=== PATIENT | female | born 1995 | race Caucasian/White ===

== ENCOUNTER 2023-08-25 03:28 | Inpatient (IN) | payer BC ==
[2023-08-25] MEDS ORDERED: Lidocaine 1% 50 ML MDV INJECT PRN (18:35)
[2023-08-25] MEDS ORDERED: Calcium Carbonate 500 MG Tab.Chew PO PRN (18:35)
[2023-08-25] MEDS ORDERED: Misoprostol 25 MCG (1/4 of 100 MCG) Tab VAG PRN (18:35)
[2023-08-25] MEDS ORDERED: Oxytocin/Lactated Ringers 30 UNIT/500 ML BAG IV SCH ×2 (18:45)
[2023-08-25 19:19] LABS: BASOPHILS PERCENT AUTO 0.3 % (0.0-1.0); EOSINOPHILS ABSOLUTE AUTO 0.1 K/mm3 (0.0-0.4); EOSINOPHILS PERCENT AUTO 0.9 % (0.0-6.0); HEMATOCRIT 37.4 % (37.0-47.0); HEMOGLOBIN 12.5 gm/dl (12.0-16.0); IMMATURE GRAN ABSOLUTE AUTO 0.14 K/mm3 (0.00-0.05); IMMATURE GRAN PERCENT AUTO 1.2 % (0.0-0.4); LYMPHOCYTES ABSOLUTE AUTO 2.1 K/mm3 (1.0-4.8); LYMPHOCYTES PERCENT AUTO 18.3 % (24.0-44.0); MEAN CORPUSCULAR HEMOGLOBIN 33.1 pg (28.0-32.0); MEAN CORPUSCULAR HGB CONC 33.4 g/dl (32.0-36.0); MEAN CORPUSCULAR VOLUME 98.9 fl (83.0-99.0); MEAN PLATELET VOLUME 11.2 fl (9.4-12.3); MONOCYTES ABSOLUTE AUTO 0.7 K/mm3 (0.0-0.8); MONOCYTES PERCENT AUTO 5.8 % (0.0-8.0); NEUTROPHILS ABSOLUTE AUTO 8.6 K/mm3 (1.8-7.7); NEUTROPHILS PERCENT AUTO 73.5 % (41.0-71.0); PLATELET COUNT,PLT 151 K/mm3 (150-400); RED BLOOD CELL COUNT 3.78 M/mm3 (4.10-5.30); WHITE BLOOD CELL COUNT,WBC 11.68 K/mm3 (3.9-11.3)
[2023-08-25] MEDS: Misoprostol 25 MCG (1/4 of 100 MCG) Tab VAG ONE (19:49)
[2023-08-25] MEDS ORDERED: diphenhydrAMINE 50 MG/ML SDV IVPUSH PRN (20:15)
[2023-08-25] MEDS: Ondansetron 4 MG/2 ML SDV IVPUSH PRN (23:47)
[2023-08-26] MEDS: Lactated Ringers 1,000 ML IV SCH (01:01)
[2023-08-26] MEDS: fentaNYL 100 MCG/2 ML SDV EPIDUR PRN (01:16)
[2023-08-26] MEDS: Bupivacaine/fentaNYL/NS 100 ML Bag EPIDUR PRN (01:16)
[2023-08-26] MEDS: Azithromycin 500 MG in Sodium Chloride 0.9% 250 ML IV ONE (02:20)
[2023-08-26] MEDS: ePHEDrine 50 MG/ML SDV IVPUSH PRN (02:37)
[2023-08-26] MEDS: Metoclopramide 10 MG/2 ML SDV IVPUSH ONE (02:40)
[2023-08-26] MEDS: Citric Acid/Sodium Citrate Solution 30 ML Cup PO ONE (02:40)
[2023-08-26] MEDS ORDERED: Sodium Chloride 0.9% 10 ML Syringe FLUSH PRN (02:44)
[2023-08-26] MEDS ORDERED: Lactated Ringers 1,000 ML IV SCH (02:45)
[2023-08-26] MEDS ORDERED: Lidocaine 2% 5 ML SDV ONE (03:06)
[2023-08-26] MEDS ORDERED: ceFAZolin 2 GM Vial ONE (03:18)
[2023-08-26] MEDS: Bupivacaine 0.5% 30 ML SDV ONE (03:21)
[2023-08-26] MEDS ORDERED: Ketorolac 30 MG/ML SDV ONE (03:47)
[2023-08-26] MEDS ORDERED: Bupivacaine 0.25% 10 ML SDV ONE (04:00)
[2023-08-26] MEDS ORDERED: Ondansetron 4 MG/2 ML SDV IV PRN (06:00)
[2023-08-26] MEDS ORDERED: fentaNYL 100 MCG/2 ML SDV IVPUSH PRN (06:00)
[2023-08-26] MEDS ORDERED: ePHEDrine 50 MG/ML SDV IVPUSH PRN (06:00)
[2023-08-26] MEDS ORDERED: diphenhydrAMINE 50 MG/ML SDV IVPUSH PRN (06:00)
[2023-08-26] MEDS ORDERED: Naloxone 0.4 MG/ML SDV IVPUSH PRN (06:00)
[2023-08-26] MEDS: Dextrose 5%-Lactated Ringers 1,000 ML IV SCH (06:19)
[2023-08-26] MEDS: Acetaminophen 325 MG Tab PO SCH (07:31)
[2023-08-26] MEDS ORDERED: Sodium Chloride 0.9% 10 ML Syringe FLUSH SCH (09:00)
[2023-08-26] MEDS: Ketorolac 30 MG/ML SDV IVPUSH SCH (10:06)
[2023-08-26] MEDS: Simethicone 80 MG Tab.Chew PO PRN (20:16)
[2023-08-27] MEDS: Ibuprofen 800 MG Tab PO SCH (04:34)
[2023-08-27 05:58] LABS: BASOPHILS PERCENT AUTO 0.3 % (0.0-1.0); EOSINOPHILS ABSOLUTE AUTO 0.1 K/mm3 (0.0-0.4); EOSINOPHILS PERCENT AUTO 0.9 % (0.0-6.0); HEMATOCRIT 23.1 % (37.0-47.0); IMMATURE GRAN ABSOLUTE AUTO 0.08 K/mm3 (0.00-0.05); IMMATURE GRAN PERCENT AUTO 0.8 % (0.0-0.4); LYMPHOCYTES ABSOLUTE AUTO 1.8 K/mm3 (1.0-4.8); LYMPHOCYTES PERCENT AUTO 18.1 % (24.0-44.0); MEAN CORPUSCULAR HEMOGLOBIN 33.3 pg (28.0-32.0); MEAN CORPUSCULAR HGB CONC 32.9 g/dl (32.0-36.0); MEAN CORPUSCULAR VOLUME 101.3 fl (83.0-99.0); MONOCYTES ABSOLUTE AUTO 0.7 K/mm3 (0.0-0.8); MONOCYTES PERCENT AUTO 7.2 % (0.0-8.0); NEUTROPHILS ABSOLUTE AUTO 7.3 K/mm3 (1.8-7.7); NEUTROPHILS PERCENT AUTO 72.7 % (41.0-71.0); PLATELET COUNT,PLT 120 K/mm3 (150-400); RED BLOOD CELL COUNT 2.28 M/mm3 (4.10-5.30); WHITE BLOOD CELL COUNT,WBC 10.02 K/mm3 (3.9-11.3)
[2023-08-27 06:00] LABS: HEMOGLOBIN 7.6 gm/dl (12.0-16.0)
== END 2023-08-28 12:57 | disposition home or self-care (01) | DRG 540 ==
LOC: JD.OB 03:28 → OBSVTOIN 08-26 03:28 → JD.OB 08-26 03:29
PROVIDERS: ADMIT Obstetrics & Gynecology; ATTEND Obstetrics & Gynecology
PROC: 10D00Z1 Extraction of Products of Conception, Low, Open Approach (ICD-10-PCS; principal; 2023-08-26 03:00)
DX: O24.12 Pre-existing type 2 diabetes mellitus, in childbirth (principal); Z3A.39 39 weeks gestation of pregnancy; Z37.0 Single live birth; O32.1XX0 Maternal care for breech presentation, not applicable or unspecified; Z88.5 Allergy status to narcotic agent; Z88.2 Allergy status to sulfonamides; Z79.84 Long term (current) use of oral hypoglycemic drugs; Z79.82 Long term (current) use of aspirin; Z91.018 Allergy to other foods
CPT/HCPCS: 01968; 36415; 51702; 59025; 82947; 85025; 86592; 86850; 86900; 86901; 99140; A9270-GY; J0456; J0665; J0690; J1885; J2405; J2765; J3010; J3490; J7050; J7120; J7121

== ENCOUNTER 2024-12-22 11:42 | Emergency (ER) | payer BC ==
[2024-12-22 12:09] LABS: BASOPHILS ABSOLUTE AUTO 0.0 K/mm3 (0.0-0.2); BASOPHILS PERCENT AUTO 0.5 % (0.0-1.0); EOSINOPHILS ABSOLUTE AUTO 0.2 K/mm3 (0.0-0.4); EOSINOPHILS PERCENT AUTO 2.7 % (0.0-6.0); IMMATURE GRAN ABSOLUTE AUTO 0.02 K/mm3 (0.00-0.05); IMMATURE GRAN PERCENT AUTO 0.3 % (0.0-0.4); LYMPHOCYTES ABSOLUTE AUTO 1.5 K/mm3 (1.0-4.8); LYMPHOCYTES PERCENT AUTO 22.7 % (24.0-44.0); MEAN PLATELET VOLUME 10.1 fl (9.4-12.3); MONOCYTES ABSOLUTE AUTO 0.5 K/mm3 (0.0-0.8); MONOCYTES PERCENT AUTO 7.1 % (0.0-8.0); NEUTROPHILS ABSOLUTE AUTO 4.4 K/mm3 (1.8-7.7); NEUTROPHILS PERCENT AUTO 66.7 % (41.0-71.0); NRBC ABSOLUTE 0.00 (0.00-0.02); NRBC PERCENT 0.0 % (0.0-0.2); PLATELET COUNT,PLT 193 K/mm3 (150-400); RED BLOOD CELL COUNT 4.37 M/mm3 (4.10-5.30); WHITE BLOOD CELL COUNT,WBC 6.60 K/mm3 (3.9-11.3)
[2024-12-22 12:33] LABS: A/G RATIO 0.9 (1-2); ALANINE AMINOTRANSFERASE,ALT 11.0 U/L (14-59); ASPARTATE AMNIOTRANSFERASE,AST 15.0 U/L (15-37); BILIRUBIN TOTAL 0.4 mg/dL (0.2-1.0); BLOOD UREA NITROGEN,BUN 9.0 mg/dL (7-18); CARBON DIOXIDE,CO2 27.0 mEq/L (21-32); CHLORIDE,CL 104.0 mEq/L (98-107); CREATININE 0.6 mg/dL (0.55-1.02); EST CRCL DRUG DOSING (CG) 102.52 mL/min; ESTIMATED GFR 123.0 mL/min (>60); GLUCOSE RANDOM 87.0 mg/dL (70-99); POTASSIUM,K 3.7 mEq/L (3.5-5.1); PROTEIN TOTAL,TP 6.9 g/dl (6.4-8.2); SODIUM,NA 139.0 mEq/L (136-145)
== END 2024-12-22 14:34 | disposition home or self-care (01) ==
LOC: JD.ED 11:42
DX: O41.8X10 Other specified disorders of amniotic fluid and membranes, first trimester, not applicable or unspecified (principal); J45.909 Unspecified asthma, uncomplicated; E11.9 Type 2 diabetes mellitus without complications; Z90.49 Acquired absence of other specified parts of digestive tract; Z91.018 Allergy to other foods; Z88.8 Allergy status to other drugs, medicaments and biological substances; Z88.5 Allergy status to narcotic agent; Z79.82 Long term (current) use of aspirin; Z79.899 Other long term (current) drug therapy; Z79.84 Long term (current) use of oral hypoglycemic drugs
CPT/HCPCS: 36415; 76817; 76817-26; 80053; 84702; 85025; 86900; 86901; 99284